=== PATIENT | male | born 1985 | race Caucasian/White ===

== ENCOUNTER 2019-03-24 07:25 | Inpatient (IN) | payer SELFPAY ==
[2019-03-24 08:25] LABS: ABSOLUTE BASOPHILS # (AUTO) 0.1 10^3/uL (0.0-0.2); ABSOLUTE LYMPHOCYTES (AUTO) 1.8 10^3/uL (0.5-4.7); ABSOLUTE MONOCYTES (AUTO) 1.6 10^3/uL (0.1-1.4); ABSOLUTE NEUT (AUTO) 10.8 10^3/uL (1.7-8.2); BASOPHILS % (AUTO) 0.4 % (0-2); EOSINOPHILS % (AUTO) 0.3 % (0-6); HEMATOCRIT 48.5 % (37.9-51.0); HEMOGLOBIN 16.2 g/dL (13.5-17.0); LYMPHOCYTES % (AUTO) 12.3 % (13-45); MEAN CORPUSCULAR HEMOGLOBIN 30.8 pg (27.0-33.4); MEAN CORPUSCULAR HGB CONC 33.4 g/dL (32.0-36.0); MEAN CORPUSCULAR VOLUME 92 fl (80-97); MONOCYTES % (AUTO) 11.5 % (3-13); PLATELET COUNT 296 10^3/uL (150-450); RED BLOOD COUNT 5.25 10^6/uL (4.35-5.55); RED CELL DISTRIBUTION WIDTH 12.4 % (11.5-14.0); SEGMENTED NEUTROPHILS % (AUTO) 75.5 % (42-78); TOTAL CELLS COUNTED % (AUTO) 100 %; WHITE BLOOD COUNT 14.3 10^3/uL (4.0-10.5)
[2019-03-24] MEDS ORDERED: FENTANYL CITRATE INJ/PF 100 MCG/2 ML AMPUL IV ONE (08:38)
[2019-03-24] MEDS ORDERED: ONDANSETRON HCL INJ/PF 4 MG/2 ML SDV IV ONE (08:38)
[2019-03-24] MEDS ORDERED: NORMAL SALINE 1000 ML 1,000 ML IV ONE (08:38)
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
[2019-03-24 08:51] LABS: ALBUMIN 4.6 g/dL (3.5-5.0); ALKALINE PHOSPHATASE 84 U/L (38-126); ANION GAP 16 (5-19); ASPARTATE AMINO TRANSFERASE 37 U/L (17-59); BILIRUBIN,DIRECT 0.5 mg/dL (0.0-0.4); BLOOD UREA NITROGEN 9 mg/dL (7-20); CARBON DIOXIDE 27 mmol/L (22-30); CHLORIDE 97 mmol/L (98-107); GLUCOSE 100 mg/dL (75-110); POTASSIUM 4.3 mmol/L (3.6-5.0)
--- NOTE | 2019-03-24 09:56 | RADIOLOGY REPORT (SQ) ---
EXAM DESCRIPTION: CT ABD/PELVIS WITH IV ONLY COMPLETED DATE/TIME: 03/24/2019 9:38 am REASON FOR STUDY: lower pelvic pain COMPARISON: None. TECHNIQUE: CT scan of the abdomen and pelvis performed using helical scanning technique with dynamic intravenous contrast injection. No oral contrast. Images reviewed with lung, soft tissue, and bone windows. Reconstructed coronal and sagittal MPR images reviewed. Delayed images for evaluation of the urinary system also acquired. All images stored on PACS. All CT scanners at this facility use dose modulation, iterative reconstruction, and/or weight based d osing when appropriate to reduce radiation dose to as low as reasonably achievable (ALARA). [facility]: Dose Right [facility]: CareDose [facility]: Dose Right [facility]: Teradose 4D [facility]: [facility] CONTRAST TYPE AND DOSE: contrast/concentration: Isovue 350.00 mg/ml; Total Contrast Delivered: 94.0 ml; Total Saline Delivered: 20.0 ml RENAL FUNCTION: None required. The patient is less than 50 years old. RADIATION DOSE: CT Rad equipment meets quality standard of care and radiation dose reduction techniq ues were employed. CTDIvol: 7.8 - 11.0 mGy. DLP: 1156 mGy-cm.. LIMITATIONS: None. FINDINGS: LOWER CHEST: No significant findings. No nodules or infiltrates. LIVER: Normal size. No masses. No dilated ducts. SPLEEN: Normal size. No focal lesions. PANCREAS: No masses. No significant calcifications. No adjacent inflammation or peripancreatic fluid collections. Pancreatic duct not dilated. GALLBLADDER: No identified stones by CT criteria. No inflammatory changes to suggest cholecystitis. ADRENAL GLANDS: No significant masses or asymmetry. RIGHT KIDNEY AND URETER: No solid masses. No significant calcifications. No hydronephrosis or hyd roureter. LEFT KIDNEY AND URETER: No solid masses. No significant calcifications. No hydronephrosis or hydr oureter. AORTA AND VESSELS: No aneurysm. No dissection. Renal arteries, SMA, celiac without stenosis. RETROPERITONEUM: No retroperitoneal adenopathy, hemorrhage or masses. BOWEL AND PERITONEAL CAVITY: Sigmoid diverticulosis. Inflammatory changes with approximately 3.4 x 2 .2 cm mural fluid collection. Small extraluminal gas bubbles. No free air. APPENDIX: Normal. PELVIS: No mass. No free fluid. Normal bladder. ABDOMINAL WALL: No masses. No hernias. BONES: No significant or acute findings. OTHER: No other significant finding. IMPRESSION: Sigmoid diverticulitis. Surgical consultation is recommended. TECHNICAL DOCUMENTATION: JOB ID: [id number] Quality ID # [id number]: Final reports with documentation of one or more dose reduction techniques (e.g., Au tomated exposure control, adjustment of the mA and/or kV according to patient size, use of iterative reconstruction technique) 2010 [employer]- All Rights Reserved Reading location - IP/workstation name: [email or web address]
[2019-03-24] MEDS ORDERED: PIPERACILLIN/TAZOBACTAM 3.375 GM VIAL IV ONE (10:45)
[2019-03-24 11:03] LABS: APPEARANCE,URINE CLEAR; BILIRUBIN,URINE NEGATIVE (NEGATIVE); COLOR,URINE YELLOW; GLUCOSE, URINE NEGATIVE (NEGATIVE); KETONES,URINE 20 mg/dL (NEGATIVE); LEUKOCYTE ESTERASE,URINE NEGATIVE (NEGATIVE); NITRITE,URINE NEGATIVE (NEGATIVE); PROTEIN,URINE NEGATIVE (NEGATIVE)
[2019-03-24 11:04] LABS: URINE SPECIFIC GRAVITY > 1.060
[2019-03-24] MEDS ORDERED: MORPHINE SULFATE 10 MG/ML INJ IV ONE (11:42)
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
[2019-03-24 12:24] LABS: CHLAM PCR NOT DETECTED (NOT DETECT)
[2019-03-24] MEDS ORDERED: DEXTROSE 50%-WATER 25 GM/50 ML DISP.SYRIN IV PRN ×2 (12:53)
[2019-03-24] MEDS ORDERED: ONDANSETRON HCL INJ/PF 4 MG/2 ML SDV IV PRN (12:53)
[2019-03-24] MEDS ORDERED: GLUCAGON,HUMAN RECOMB 1 MG INJ SUBCUT PRN (12:53)
[2019-03-24] MEDS ORDERED: DEXTROSE 40% GEL 15 GM TUBE PO PRN ×2 (12:53)
[2019-03-24] MEDS ORDERED: PIPERACILLIN/TAZOBACTAM 4.5 GM VIAL IV SCH (15:00)
[2019-03-24] MEDS: PIPERACILLIN SODIUM/TAZOBACTAM 4.5 GM in NORMAL SALINE 100 ML IV SCH ×2 (15:10→21:05)
[2019-03-24] MEDS: ENOXAPARIN SODIUM INJ 40 MG/0.4 ML DISP.SYRIN SUBCUT SCH (15:11)
[2019-03-24] MEDS: FAMOTIDINE INJ/PF 20 MG/2 ML SDV IV SCH ×2 (15:11→21:06)
[2019-03-24] MEDS: NORMAL SALINE 1000 ML 1,000 ML IV PRN ×2 (15:25→21:06)
[2019-03-24] MEDS: MORPHINE SULFATE 10 MG/ML INJ IV PRN (17:57)
[2019-03-25] MEDS: MORPHINE SULFATE 10 MG/ML INJ IV PRN ×5 (00:36→21:01)
[2019-03-25] MEDS: PIPERACILLIN SODIUM/TAZOBACTAM 4.5 GM in NORMAL SALINE 100 ML IV SCH ×4 (03:28→21:01)
[2019-03-25 06:13] LABS: ABSOLUTE BASOPHILS # (AUTO) 0.1 10^3/uL (0.0-0.2); ABSOLUTE EOSINOPHILS # (AUTO) 0.1 10^3/uL (0.0-0.6); ABSOLUTE LYMPHOCYTES (AUTO) 2.3 10^3/uL (0.5-4.7); ABSOLUTE MONOCYTES (AUTO) 1.6 10^3/uL (0.1-1.4); ABSOLUTE NEUT (AUTO) 8.5 10^3/uL (1.7-8.2); BASOPHILS % (AUTO) 0.5 % (0-2); EOSINOPHILS % (AUTO) 0.7 % (0-6); HEMATOCRIT 41.6 % (37.9-51.0); LYMPHOCYTES % (AUTO) 18.2 % (13-45); MEAN CORPUSCULAR HEMOGLOBIN 31.1 pg (27.0-33.4); MEAN CORPUSCULAR HGB CONC 33.7 g/dL (32.0-36.0); MEAN CORPUSCULAR VOLUME 92 fl (80-97); MONOCYTES % (AUTO) 12.5 % (3-13); PLATELET COUNT 226 10^3/uL (150-450); RED BLOOD COUNT 4.51 10^6/uL (4.35-5.55); RED CELL DISTRIBUTION WIDTH 12.6 % (11.5-14.0); SEGMENTED NEUTROPHILS % (AUTO) 68.1 % (42-78); TOTAL CELLS COUNTED % (AUTO) 100 %; WHITE BLOOD COUNT 12.5 10^3/uL (4.0-10.5)
[2019-03-25 06:25] LABS: ANION GAP 12 (5-19); BLOOD UREA NITROGEN 9 mg/dL (7-20); CALCIUM 9.1 mg/dL (8.4-10.2); CARBON DIOXIDE 22 mmol/L (22-30); CHLORIDE 104 mmol/L (98-107); GLUCOSE 81 mg/dL (75-110); POTASSIUM 4.1 mmol/L (3.6-5.0)
[2019-03-25] MEDS: FAMOTIDINE INJ/PF 20 MG/2 ML SDV IV SCH ×2 (09:32→22:05)
[2019-03-25] MEDS: ENOXAPARIN SODIUM INJ 40 MG/0.4 ML DISP.SYRIN SUBCUT SCH (09:33)
--- NOTE | 2019-03-25 09:56 | PDOC PROGRESS REPORT ---
Subjective Progress Note for:: 03/25/19 Subjective:: Patient feels comfortable, still complaining of lower abdominal left-sided pain; flatus and nausea present, no vomiting Reason For Visit: LOCALIZED AND PERFORATED SIGMOID DIVERTICULITIS Physical Exam Vital Signs: Temp Pulse Resp BP Pulse Ox 98.2 F 64 17 131/58 H 94 03/25/19 08:28 03/25/19 08:28 03/25/19 08:00 03/25/19 08:28 03/25/19 08:28 Intake & Output 03/24/19 03/25/19 03/26/19 06:59 06:59 06:59 Intake Total 3152 Balance 3152 Weight 92.1 kg General appearance: PRESENT: no acute distress Respiratory exam: PRESENT: clear to auscultation helene Cardiovascular exam: PRESENT: RRR GI/Abdominal exam: PRESENT: hypoactive bowel sounds, soft, tenderness - In the left lower quadrant and in the hypogastrium, other - No peritoneal signs Results Laboratory Results: 03/25/19 05:59 03/25/19 05:59 03/24/19 03/25/19 03/25/19 10:42 05:59 05:59 WBC 12.5 H RBC 4.51 Hgb 14.0 D Hct 41.6 MCV 92 MCH 31.1 MCHC 33.7 RDW 12.6 Plt Count 226 Seg Neutrophils % 68.1 Sodium 138.0 Potassium 4.1 Chloride 104 Carbon Dioxide 22 Anion Gap 12 BUN 9 Creatinine 0.97 Est GFR ( Amer) > 60 Glucose 81 Calcium 9.1 Urine Color YELLOW Urine Appearance CLEAR Urine pH 7.0 Ur Specific [place] > 1.060 Urine Protein NEGATIVE Urine Glucose (UA) NEGATIVE Urine Ketones 20 H Urine Blood SMALL H Urine Nitrite NEGATIVE Ur Leukocyte Esterase NEGATIVE Urine WBC (Auto) 1 Urine RBC (Auto) 2 Impressions: Abdomen/Pelvis CT 03/24/19 08:38 IMPRESSION: Sigmoid diverticulitis. Surgical consultation is recommended. Assessment & Plan - Diagnosis (1) pericolic fluid collection Is this a current diagnosis for this admission?: Yes (2) Sigmoid diverticulitis Is this a current diagnosis for this admission?: Yes - Plan Summary Plan Summary: Assessment: Perforated sigmoid diverticulitis with pericolic fluid collection measuring 3.3 cm According to the radiologist consulted today, the patient's fluid collection is not amenable of percutaneous drainage at this time as it is not completely walled off; he recommends repeating the CT scan abdomen / pelvis in 48 hours Plan: Continue n.p.o. except for a few ice chips Continue IV fluids and IV antibiotics Plan a CT scan abdomen / pelvis in 2 days Possible percutaneous drainage of pericolic fluid collection after the CAT scan next week
[2019-03-26] MEDS: PIPERACILLIN SODIUM/TAZOBACTAM 4.5 GM in NORMAL SALINE 100 ML IV SCH ×4 (02:51→21:12)
[2019-03-26] MEDS: MORPHINE SULFATE 10 MG/ML INJ IV PRN ×3 (02:51→22:18)
[2019-03-26 04:35] LABS: ABSOLUTE BASOPHILS # (AUTO) 0.1 10^3/uL (0.0-0.2); ABSOLUTE EOSINOPHILS # (AUTO) 0.1 10^3/uL (0.0-0.6); ABSOLUTE MONOCYTES (AUTO) 1.2 10^3/uL (0.1-1.4); ABSOLUTE NEUT (AUTO) 6.7 10^3/uL (1.7-8.2); BASOPHILS % (AUTO) 0.7 % (0-2); EOSINOPHILS % (AUTO) 1.1 % (0-6); HEMATOCRIT 42.7 % (37.9-51.0); HEMOGLOBIN 14.6 g/dL (13.5-17.0); LYMPHOCYTES % (AUTO) 20.1 % (13-45); MEAN CORPUSCULAR HEMOGLOBIN 31.1 pg (27.0-33.4); MEAN CORPUSCULAR HGB CONC 34.1 g/dL (32.0-36.0); MEAN CORPUSCULAR VOLUME 91 fl (80-97); MONOCYTES % (AUTO) 11.9 % (3-13); PLATELET COUNT 261 10^3/uL (150-450); RED BLOOD COUNT 4.68 10^6/uL (4.35-5.55); RED CELL DISTRIBUTION WIDTH 12.4 % (11.5-14.0); SEGMENTED NEUTROPHILS % (AUTO) 66.2 % (42-78); TOTAL CELLS COUNTED % (AUTO) 100 %; WHITE BLOOD COUNT 10.1 10^3/uL (4.0-10.5)
[2019-03-26 04:59] LABS: ANION GAP 12 (5-19); BLOOD UREA NITROGEN 8 mg/dL (7-20); CALCIUM 9.2 mg/dL (8.4-10.2); CARBON DIOXIDE 26 mmol/L (22-30); CHLORIDE 99 mmol/L (98-107); GLUCOSE 72 mg/dL (75-110); POTASSIUM 4.2 mmol/L (3.6-5.0)
[2019-03-26] MEDS: ENOXAPARIN SODIUM INJ 40 MG/0.4 ML DISP.SYRIN SUBCUT SCH (10:29)
[2019-03-26] MEDS: FAMOTIDINE INJ/PF 20 MG/2 ML SDV IV SCH ×2 (10:29→21:13)
--- NOTE | 2019-03-26 14:21 | PDOC PROGRESS REPORT ---
Subjective Progress Note for:: 03/26/19 Subjective:: This is a 34-year-old male with complicated diverticulitis. On CT the patient was found to have a 3 x 2 cm phlegmon inferior/posterior to the sigmoid colon. It appears to be a mesenteric abscess. The patient was admitted to the floor, bowel rest and antibiotics were initiated. Today, he reports feeling better. He denies nausea, vomiting, chest pain, fevers, chills, melena, hematochezia, hematemesis, chest pain, shortness of breath, dizziness, orthostasis, fatigue. He is passing flatus. He does feel hungry. Reason For Visit: LOCALIZED AND PERFORATED SIGMOID DIVERTICULITIS Physical Exam Vital Signs: Temp Pulse Resp BP Pulse Ox 98.5 F 62 16 123/71 96 03/26/19 11:47 03/26/19 11:47 03/26/19 11:47 03/26/19 11:47 03/26/19 11:47 Intake & Output 03/25/19 03/26/19 03/27/19 06:59 06:59 06:59 Intake Total 3152 400 280 Balance 3152 400 280 Weight 92.1 kg 94.8 kg General appearance: PRESENT: no acute distress, cooperative Head exam: PRESENT: atraumatic, normocephalic Eye exam: PRESENT: EOMI, PERRLA. ABSENT: scleral icterus Mouth exam: PRESENT: moist, neck supple Neck exam: ABSENT: tenderness, thyromegaly, tracheal deviation Respiratory exam: PRESENT: clear to auscultation helene, unlabored. ABSENT: chest wall tenderness, tachypnea, wheezes Cardiovascular exam: PRESENT: RRR Pulses: PRESENT: normal radial pulses GI/Abdominal exam: PRESENT: soft, tenderness - Left lower quadrant. ABSENT: distended, firm, rebound, rigid Rectal exam: PRESENT: deferred Extremities exam: ABSENT: clubbing Musculoskeletal exam: ABSENT: deformity Neurological exam: PRESENT: alert, awake, oriented to person, oriented to place, oriented to time, oriented to situation, CN II-XII grossly intact Psychiatric exam: ABSENT: agitated, anxious, depressed Focused psych exam: ABSENT: delusional Skin exam: ABSENT: cyanosis, erythema, jaundice Results Laboratory Results: 03/26/19 03:28 03/26/19 03:28 03/26/19 03/26/19 03:28 03:28 WBC 10.1 RBC 4.68 Hgb 14.6 Hct 42.7 MCV 91 MCH 31.1 MCHC 34.1 RDW 12.4 Plt Count 261 Seg Neutrophils % 66.2 Sodium 136.6 L Potassium 4.2 Chloride 99 Carbon Dioxide 26 Anion Gap 12 BUN 8 Creatinine 0.87 Est GFR ( Amer) > 60 Glucose 72 L Calcium 9.2 Impressions: Abdomen/Pelvis CT 03/24/19 08:38 IMPRESSION: Sigmoid diverticulitis. Surgical consultation is recommended. Assessment & Plan - Diagnosis (1) Diverticulitis of large intestine with complication Is this a current diagnosis for this admission?: Yes - Plan Summary Plan Summary: This is a 34-year-old male with complicated diverticulitis. The patient overall is feeling better. The plan is for repeat CT scan tomorrow to reassess his 3 cm abscess. If the patient's symptoms are improving, and his abscess is smaller, it is unlikely for him to require any further intervention. If the abscess is growing in size, he will require percutaneous aspiration versus surgical intervention. Continue antibiotics. Full liquids today. Await CT scan tomorrow to determine the next step in the patient's treatment.
[2019-03-27] MEDS: PIPERACILLIN SODIUM/TAZOBACTAM 4.5 GM in NORMAL SALINE 100 ML IV SCH ×4 (03:08→21:05)
[2019-03-27] MEDS: MORPHINE SULFATE 10 MG/ML INJ IV PRN ×3 (03:08→23:10)
[2019-03-27 04:21] LABS: ABSOLUTE BASOPHILS # (AUTO) 0.1 10^3/uL (0.0-0.2); ABSOLUTE EOSINOPHILS # (AUTO) 0.1 10^3/uL (0.0-0.6); ABSOLUTE LYMPHOCYTES (AUTO) 2.1 10^3/uL (0.5-4.7); ABSOLUTE NEUT (AUTO) 5.7 10^3/uL (1.7-8.2); BASOPHILS % (AUTO) 0.6 % (0-2); EOSINOPHILS % (AUTO) 1.3 % (0-6); HEMATOCRIT 44.8 % (37.9-51.0); HEMOGLOBIN 15.2 g/dL (13.5-17.0); LYMPHOCYTES % (AUTO) 23.5 % (13-45); MEAN CORPUSCULAR HEMOGLOBIN 30.9 pg (27.0-33.4); MEAN CORPUSCULAR VOLUME 91 fl (80-97); MONOCYTES % (AUTO) 11.2 % (3-13); PLATELET COUNT 260 10^3/uL (150-450); RED BLOOD COUNT 4.93 10^6/uL (4.35-5.55); RED CELL DISTRIBUTION WIDTH 12.2 % (11.5-14.0); SEGMENTED NEUTROPHILS % (AUTO) 63.4 % (42-78); TOTAL CELLS COUNTED % (AUTO) 100 %; WHITE BLOOD COUNT 8.9 10^3/uL (4.0-10.5)
[2019-03-27 04:46] LABS: ANION GAP 12 (5-19); BLOOD UREA NITROGEN 8 mg/dL (7-20); CALCIUM 9.5 mg/dL (8.4-10.2); CARBON DIOXIDE 25 mmol/L (22-30); CHLORIDE 101 mmol/L (98-107); GLUCOSE 92 mg/dL (75-110)
[2019-03-27] MEDS: ENOXAPARIN SODIUM INJ 40 MG/0.4 ML DISP.SYRIN SUBCUT SCH (09:25)
[2019-03-27] MEDS: FAMOTIDINE INJ/PF 20 MG/2 ML SDV IV SCH ×2 (09:26→21:05)
[2019-03-27] MEDS ORDERED: DEXTROSE 50%-WATER 25 GM/50 ML DISP.SYRIN IV PRN ×2 (15:02)
[2019-03-27] MEDS ORDERED: DEXTROSE 40% GEL 15 GM TUBE PO PRN ×2 (15:02)
[2019-03-27] MEDS ORDERED: GLUCAGON,HUMAN RECOMB 1 MG INJ SUBCUT PRN (15:02)
--- NOTE | 2019-03-27 15:02 | PDOC PROGRESS REPORT ---
Subjective Progress Note for:: 03/27/19 Subjective:: The patient reports improvement of his left lower quadrant abdominal pain, tolerating p.o. fairly, flatus present Reason For Visit: LOCALIZED AND PERFORATED SIGMOID DIVERTICULITIS Physical Exam Vital Signs: Temp Pulse Resp BP Pulse Ox 98.1 F 60 16 127/76 H 99 03/27/19 11:11 03/27/19 11:11 03/27/19 11:11 03/27/19 11:11 03/27/19 11:11 Intake & Output 03/26/19 03/27/19 03/28/19 06:59 06:59 06:59 Intake Total 400 580 Balance 400 580 Weight 94.8 kg 92.8 kg General appearance: PRESENT: no acute distress GI/Abdominal exam: PRESENT: soft, tenderness - On deep palpation of the left lower quadrant Results Laboratory Results: 03/27/19 04:12 03/27/19 04:12 03/27/19 03/27/19 04:12 04:12 WBC 8.9 RBC 4.93 Hgb 15.2 Hct 44.8 MCV 91 MCH 30.9 MCHC 34.0 RDW 12.2 Plt Count 260 Seg Neutrophils % 63.4 Sodium 138.3 Potassium 4.0 Chloride 101 Carbon Dioxide 25 Anion Gap 12 BUN 8 Creatinine 0.87 Est GFR ( Amer) > 60 Glucose 92 Calcium 9.5 Assessment & Plan - Diagnosis (1) pericolic fluid collection Is this a current diagnosis for this admission?: Yes (2) Sigmoid diverticulitis Is this a current diagnosis for this admission?: Yes - Plan Summary Plan Summary: Assessment: Perforated sigmoid diverticulitis with contained fluid collection Repeated CAT scan of the abdomen and pelvis done today reveals a persistent fluid collection with thickened wall The patient reports flatus Full liquid diet is fairly tolerated Blood pressure count normal Patient afebrile Plan: N.p.o. after midnight Interventional radiology drainage of the pericolic fluid collection tomorrow Start IV fluids after midnight Hold of Lovenox prior to the procedure tomorrow
[2019-03-27 16:31] LABS: INTERNATIONAL RATION (INR) 1.15; PARTIAL THROMBOPLASTIN TIME 30.6 SEC (23.5-35.8); PROTHROMBIN TIME 14.7 SEC (11.4-15.4)
[2019-03-27] MEDS: NORMAL SALINE 1000 ML 1,000 ML IV PRN (21:06)
[2019-03-28] MEDS: MORPHINE SULFATE 10 MG/ML INJ IV PRN ×3 (03:14→22:52)
[2019-03-28] MEDS: PIPERACILLIN SODIUM/TAZOBACTAM 4.5 GM in NORMAL SALINE 100 ML IV SCH ×4 (03:14→21:12)
[2019-03-28] MEDS: NORMAL SALINE 1000 ML 1,000 ML IV PRN (03:15)
--- NOTE | 2019-03-28 04:29 | RADIOLOGY REPORT (SQ) ---
CLINICAL HISTORY: eval diverticular abscess, abdominal pain COMPARISON: None. TECHNIQUE: CT ABDOMEN PELVIS WITH IV CONTRAST on 03/27/2019 12:00 AM CDT This exam was performed according to our departmental dose-optimization program, which includes automated exposure control, adjustment of the mA and/or kV according to patient size and/or use of iterative reconstruction technique. FINDINGS: There is bibasilar atelectasis and scarring. Abdomen: The liver is normal in appearance. There is no biliary dilatation. Gallbladder is normal in appearance. The pancreas and spleen are normal in appearance. The adrenal glands and kidneys are unremarkable. Abdominal aorta is normal in course and caliber without aneurysm. There is no free air. There is no retroperitoneal adenopathy. Pelvis: There is inflammation surrounding the mid sigmoid colon. There is an intraluminal abscess measuring 3.3 x 1.6 cm within the mid sigmoid colon. Urinary bladder is unremarkable. There is small amount of free pelvic fluid. Appendix is normal. Skeleton: There are no acute osseous findings. No suspicious bony lesions. IMPRESSION: Suspect mid sigmoid colonic diverticulitis with developing abscess within the sigmoid colon.
[2019-03-28 06:49] LABS: ABSOLUTE EOSINOPHILS # (AUTO) 0.1 10^3/uL (0.0-0.6); ABSOLUTE LYMPHOCYTES (AUTO) 2.1 10^3/uL (0.5-4.7); ABSOLUTE MONOCYTES (AUTO) 0.6 10^3/uL (0.1-1.4); ABSOLUTE NEUT (AUTO) 2.6 10^3/uL (1.7-8.2); BASOPHILS % (AUTO) 0.8 % (0-2); EOSINOPHILS % (AUTO) 2.1 % (0-6); HEMATOCRIT 43.8 % (37.9-51.0); HEMOGLOBIN 14.8 g/dL (13.5-17.0); LYMPHOCYTES % (AUTO) 38.6 % (13-45); MEAN CORPUSCULAR HEMOGLOBIN 30.9 pg (27.0-33.4); MEAN CORPUSCULAR HGB CONC 33.8 g/dL (32.0-36.0); MEAN CORPUSCULAR VOLUME 91 fl (80-97); MONOCYTES % (AUTO) 11.6 % (3-13); PLATELET COUNT 260 10^3/uL (150-450); RED CELL DISTRIBUTION WIDTH 12.2 % (11.5-14.0); SEGMENTED NEUTROPHILS % (AUTO) 46.9 % (42-78); TOTAL CELLS COUNTED % (AUTO) 100 %; WHITE BLOOD COUNT 5.5 10^3/uL (4.0-10.5)
[2019-03-28 07:04] LABS: ANION GAP 10 (5-19); BLOOD UREA NITROGEN 6 mg/dL (7-20); CALCIUM 9.2 mg/dL (8.4-10.2); CARBON DIOXIDE 26 mmol/L (22-30); CHLORIDE 105 mmol/L (98-107); GLUCOSE 91 mg/dL (75-110); POTASSIUM 4.4 mmol/L (3.6-5.0)
[2019-03-28] MEDS: FAMOTIDINE INJ/PF 20 MG/2 ML SDV IV SCH ×2 (09:09→22:52)
--- NOTE | 2019-03-28 10:38 | PDOC PROGRESS REPORT ---
Subjective Progress Note for:: 03/28/19 Subjective:: The patient has no complaints Reason For Visit: LOCALIZED AND PERFORATED SIGMOID DIVERTICULITIS Physical Exam Vital Signs: Temp Pulse Resp BP Pulse Ox 97.5 F 49 L 16 95/57 L 99 03/28/19 09:29 03/28/19 09:29 03/28/19 09:29 03/28/19 09:29 03/28/19 09:29 Intake & Output 03/27/19 03/28/19 03/29/19 06:59 06:59 06:59 Intake Total 580 1563 100 Balance 580 1563 100 Weight 92.8 kg 91.2 kg General appearance: PRESENT: no acute distress GI/Abdominal exam: PRESENT: soft, other - Noted distended not tender Results Laboratory Results: 03/28/19 06:20 03/28/19 06:20 03/28/19 03/28/19 06:20 06:20 WBC 5.5 RBC 4.80 Hgb 14.8 Hct 43.8 MCV 91 MCH 30.9 MCHC 33.8 RDW 12.2 Plt Count 260 Seg Neutrophils % 46.9 Sodium 140.6 Potassium 4.4 Chloride 105 Carbon Dioxide 26 Anion Gap 10 BUN 6 L Creatinine 1.00 Est GFR ( Amer) > 60 Glucose 91 Calcium 9.2 Impressions: Abdomen/Pelvis CT 03/27/19 00:00 IMPRESSION: Suspect mid sigmoid colonic diverticulitis with developing abscess within the sigmoid colon. Assessment & Plan - Diagnosis (1) pericolic fluid collection Is this a current diagnosis for this admission?: Yes (2) Sigmoid diverticulitis Is this a current diagnosis for this admission?: Yes - Plan Summary Plan Summary: Assessment: Perforated, contained sigmoid diverticulitis with a 4 cm fluid collection nearby the sigmoid colon Patient is currently asymptomatic Physical exam of the abdomen is unremarkable WBC normal Plan: Interventional Radiology drainage of perisigmoid fluid collection today with drain placement Resume full liquid diet after the procedure Diet can be advanced tomorrow Discharge to home in 1 to 2 days on oral antibiotics for 2 weeks Follow-up with the surgery office in 2 weeks for drain management
[2019-03-28] MEDS ORDERED: MIDAZOLAM 2 MG/2 ML INJ ONE (14:58)
[2019-03-28] MEDS ORDERED: FENTANYL CITRATE INJ/PF 100 MCG/2 ML AMPUL ONE (14:59)
--- NOTE | 2019-03-28 15:54 | RADIOLOGY REPORT (SQ) ---
EXAM DESCRIPTION: CT GUIDED PERCUT DRAIN W/CATH COMPLETED DATE/TIME: 03/28/2019 3:32 pm REASON FOR STUDY: contained sigmid colon perforaton 4 cm diameter COMPARISON: CT abdomen pelvis 03/27/2019 TECHNIQUE: Non contrasted CT of the pelvis was performed for diverticular abscess drainage. Patient was given oral contrast to drink prior to the scanning of the pelvis. CONTRAST TYPE AND DOSE: No IV contrast RENAL FUNCTION: Not required LIMITATIONS: None. FINDINGS: Patient drank additional oral contrast for diverticular abscess drainage planning since th e prior CT. On axial image image , a 4 x 2.5 cm abscess is present within the wall of the proximal sigmoid c olon. There is a tiny amount of extraluminal air adjacent to the intramural abscess, stable. No chapin e pelvic fluid. Findings were discussed with Dr. John from surgery. No percutaneous drainage was performed at thi s time. IMPRESSION: Proximal sigmoid colon intramural abscess. No percutaneous drainage was performed at th is time TECHNICAL DOCUMENTATION: JOB ID: [id number] [employer]- All Rights Reserved Reading location - IP/workstation name: [email or web address]
[2019-03-29] MEDS: PIPERACILLIN SODIUM/TAZOBACTAM 4.5 GM in NORMAL SALINE 100 ML IV SCH ×4 (04:40→20:38)
[2019-03-29] MEDS: FAMOTIDINE INJ/PF 20 MG/2 ML SDV IV SCH ×2 (10:25→21:04)
--- NOTE | 2019-03-29 14:53 | PDOC PROGRESS REPORT ---
Subjective Progress Note for:: 03/29/19 Subjective:: less pains Reason For Visit: LOCALIZED AND PERFORATED SIGMOID DIVERTICULITIS Physical Exam Vital Signs: Temp Pulse Resp BP Pulse Ox 98.2 F 58 L 20 106/63 99 03/29/19 10:56 03/29/19 10:56 03/29/19 10:56 03/29/19 10:56 03/29/19 10:56 Intake & Output 03/28/19 03/29/19 03/30/19 06:59 06:59 06:59 Intake Total 1563 1400 336 Balance 1563 1400 336 Weight 91.2 kg 92.3 kg Exam: minimal tenderness LLQ area Results Laboratory Results: 03/28/19 06:20 03/28/19 06:20 Impressions: Abdomen/Pelvis CT 03/27/19 00:00 IMPRESSION: Suspect mid sigmoid colonic diverticulitis with developing abscess within the sigmoid colon. Percutaneous Drainage 03/28/19 00:00 IMPRESSION: Proximal sigmoid colon intramural abscess. No percutaneous drainage was performed at this time Assessment & Plan - Time Time Spent with patient: 15-24 minutes - Inpatient Certification Medical Necessity: Need for IV Antibiotics - Plan Summary Plan Summary: Has 4x2 cm intramural abscess not amenable for percutaneous drainge. No drain placed by IR yesterday. Patient clinically improving. Continue IV antibiotics and start clears today. Will discharge on po antibiotics when tolerating regular diet hopefully next 24- 48 hrs.
[2019-03-30] MEDS: PIPERACILLIN SODIUM/TAZOBACTAM 4.5 GM in NORMAL SALINE 100 ML IV SCH ×2 (03:04→08:03)
--- NOTE | 2019-03-30 08:53 | PDOC DISCHARGE SUMMARY ---
General - Admit/Disc Date/PCP Admission Date/Primary Care Provider: 03/24/19 11:42 Discharge Date: 03/30/19 - Discharge Diagnosis (1) Diverticulitis of large intestine with complication Is this a current diagnosis for this admission?: Yes - Additional Information Resuscitation Status: Full Code Discharge Diet: As Tolerated Discharge Activity: Activity As Tolerated Home Medications: No Home Medications 03/24/19 History of Present Illness History of Present Illness: MARI AZAR is a 34 year old maleMARI AZAR is a 34 year old male, healthy, with a 5-day history of lower abdominal pain, fever constipation, small liquid stools for the past few days without bladder, the patient treated himself with liquids chicken broth and yogurt without improvement. He presented to the emergency room this morning with above symptoms a CAT scan of the abdomen pelvis was done revealing a 3.5cm fluid collection near the sigmoid colon with a white blood cell count elevation of 14,000 Hospital Course Hospital Course: Fragments is a 34-year-old male who was admitted to the hospital with acute diverticulitis on 03/24/2019 he underwent an initial CT scan which showed evolving diverticulitis started on IV antibiotics with resolution of his pain he had a follow-up CT scan approximately 3 days later which showed diverticulitis with a small pericolonic abscess. He was sent back to CAT scan for possible percutaneous drainage however on consultation with Dr. Helton from CT scan he was noted that it was not amenable to IR drainage. He was continued on IV antibiotics with resolution of his pain he was started on a clear liquid diet was slowly advanced to soft diet at this time 6 days after admission he is afebrile stable vital signs he has a normal white blood count he has no pain he is now to be discharged home on oral antibiotics for 10 days Bactrim DS 1 p.o. twice daily he will follow-up in the surgery clinic 7 to 10 days after discharge instructed to take a low residue diet and continue and complete his antibiotics Physical Exam Vital Signs: Temp Pulse Resp BP Pulse Ox 98.4 F 62 16 120/70 96 03/29/19 23:16 03/29/19 23:16 03/29/19 23:16 03/29/19 23:16 03/29/19 23:16 Intake & Output 03/29/19 03/30/19 03/31/19 06:59 06:59 06:59 Intake Total 1400 869 100 Balance 1400 869 100 Weight 92.3 kg 92.3 kg General appearance: PRESENT: no acute distress Head exam: PRESENT: normocephalic Eye exam: PRESENT: EOMI Ear exam: PRESENT: TM's normal bilaterally Mouth exam: PRESENT: moist Neck exam: PRESENT: full ROM Respiratory exam: PRESENT: clear to auscultation helene Cardiovascular exam: PRESENT: RRR Pulses: PRESENT: normal radial pulses, normal femoral pulses Vascular exam: PRESENT: normal capillary refill GI/Abdominal exam: PRESENT: soft Rectal exam: PRESENT: deferred Extremities exam: PRESENT: full ROM Musculoskeletal exam: PRESENT: full ROM Neurological exam: PRESENT: alert, awake, oriented to person, oriented to place Skin exam: PRESENT: dry Results Laboratory Results: 03/28/19 06:20 03/28/19 06:20 Impressions: Abdomen/Pelvis CT 03/27/19 00:00 IMPRESSION: Suspect mid sigmoid colonic diverticulitis with developing abscess within the sigmoid colon. Percutaneous Drainage 03/28/19 00:00 IMPRESSION: Proximal sigmoid colon intramural abscess. No percutaneous drainage was performed at this time Qualifiers - * PATIENT BEING DISCHARGED WITH ANY OF THE FOLLOWING DIAGNOSIS: No VTE patient discharged on overlapping Therapy?: No Reason(s) for not prescribing Overlap Therapy:: Not indicated Reason(s) for not prescribing Anti-thrombolytic therapy:: Not indicated Reason(s) for not prescribing Anti-coagulation therapy:: Not indicated Reason(s) for not prescribing Statins therapy:: Not indicated Reason(s) for not prescribing Aspirin therapy:: Not indicated Reason(s) for not prescribing Statin therapy:: Not indicated Reason(s) for not prescribing ACEI/ARBS:: Not indicated Acute Heart Failure - Is this a Heart Failure Patient?: No
[2019-03-30 10:51] VITALS: BP 108/61
== END 2019-03-30 11:00 | disposition home or self-care (01) | DRG 392 ==
LOC: ER 07:25 → EH 11:42 → 4S 13:04
PROVIDERS: ADMIT Surgery; ATTEND Surgery
DX: K57.20 Diverticulitis of large intestine with perforation and abscess without bleeding (principal); Z87.891 Personal history of nicotine dependence
CPT/HCPCS: 36415; 74177; 75989; 80048; 80053; 81001; 83690; 85025; 85610; 85730; 87491; 87591; 96361; 96365; 96375; 99285; J1650; J2250; J2270; J2405; J2543; J3010; J3490; J7030; J7050; S0028